=== PATIENT | male | born 2000 | race Caucasian/White ===

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

== ENCOUNTER 2024-08-11 21:08 | Emergency (ER) | payer OTHER, SELFPAY ==
[2024-08-11 21:09] VITALS: BP 150/92; PULSE 70; RESP 16; TEMP 36.2; O2SAT 100; BMI 28.6
[2024-08-11] MEDS: Amox/Clavulanate 875 MG Tablet PO (22:42)
[2024-08-11] MEDS: Diphth,Pertuss(Acell),Tet Vac 0.5 ML Vial IM (22:42)
--- NOTE | 2024-08-11 23:51 | EX.ED.DYSGE1 ---
HPI History of Present Illness Chief Complaint: Bite Informant: patient and spouse/S.O. Narrative Narrative: Patient is a 23-year-old male with no reported significant past medical history. He states roughly an hour before arrival his dogs tried to fight each other and as he was them he was bit in both the left and right hand. He is unsure of his tetanus status. He denies any numbness tingling or weakness. He denies any history of immunosuppression. He reports that he sustained a deep laceration to his right hand and has concern and may need sutures and therefore comes in for evaluation. [facility] Medical History (Updated 08/11/24 @ 23:[address] Polo Reyes, DO) Routine sports physical exam no medical history Home Medications ?Medication ?Instructions ?Recorded ?Last Taken ?Type amoxicillin 875 mg-potassium 1 tab PO BID 10 days #20 tabs 08/11/24 Unknown Rx clavulanate 125 mg tablet Allergy/AdvReac Type Severity Reaction Status Date / Time No Known Allergies Allergy Verified 08/11/24 21:09 Social History Smoking Status: Current every day smoker tobacco type: e-cigarettes ROS ROS ED Constitutional Constitutional ED: Denies chills or fever(s) ENT ENT ED: Denies sore throat Cardiovascular Cardiovascular: Denies chest pain Respiratory/Chest Respiratory/Chest: Denies cough or dyspnea Gastrointestinal Gastrointestinal: Denies abdominal pain, diarrhea, nausea or vomiting Genitourinary Genitourinary ED: Denies dysuria Musculoskeletal Musculoskeletal: Reports other Details: Positive bilateral hand pain Integumentary Reports other Details: Abrasions/lacerations to the bilateral hands consistent with dog bite Neurologic Neurologic: Denies headache(s), paresthesias or weakness Hematologic/Lymphatic Hematologic/Lymphatic: Denies easy bleeding or easy bruising EXAM Physical Exam Const Vital Signs: 08/11/24 21:09 Temperature 97.2 F L Temperature Source Temporal Pulse Rate 70 Respiratory Rate 16 Blood Pressure 150/92 H Blood Pressure Mean 111 Pulse Ox 100 Oxygen Delivery Method Room Air Positive well nourished and well developed General Appearance ED: well developed HEENT HEENT Narrative: Normocephalic atraumatic Eyes PERRL and EOMs intact bilaterally General Eye ED: Negative for scleral icterus Neck supple Resp normal respiratory effort and clear to auscultation bilaterally Cardio regular rate and regular rhythm Extremity Extremity Narrative: Bilateral upper extremities are neurovascularly intact; AIN/PIN are intact and normal The left hand has mild soft tissue swelling to the dorsal aspect of the left hand without bony deformity or joint effusion. No ligamentous or tendon laxity noted. Patient has 2 approximately 0.5 cm dermal layer deep lacerations to the dorsal aspect of the left hand. 1 is located near the base of of the 3rd-4th metacarpal and the second is located near the distal aspect of the second metacarpal. Each have minimal ooze of blood without foreign body The right hand also has mild soft tissue swelling along the hypothenar eminence. There is a 2 cm subcutaneous layer deep laceration with minimal ooze of blood and no foreign body consistent with dog bite. There is no obvious retained foreign body or ligamentous or tendon injury. No surrounding secondary soft tissue changes to suggest infection Both hands are soft and compressible going against compartment syndrome No signs of neurovascular compromise Neuro oriented x3, CN's II-XII intact bilaterally and no sensory deficits noted Sensorium / Orientation: alert Motor Exam: strength 5/5 throughout Psych mental status grossly normal Skin Skin Narrative: Dog bites/lacerations to the hands as documented above MDM MDM MDM Narrative Medical decision making narrative: Patient arrived to the ER hypertensive but otherwise with stable vitals. He had 2 bites of the dorsal aspect the left hand and one bite to the hypothenar eminence on the right. He had no signs of bony injury or ligamentous or tendon injury. We discussed potential x-rays to confirm/document no fracture or retained foreign body the patient has low concern for this and therefore does not on the x-rays obtained. As the dogs are his own and can be watched there is no need for treatment with rabies immunoglobulin or vaccination. However as he was unsure of his tetanus status was updated. In order to prevent secondary infection prophylactic Augmentin was started. The wounds to the dorsal aspect of the left hand are more superficial nature and do not need closure. The laceration to the right hand is gaping and jagged and will require loose closure in order to heal. Therefore the wound was sutured as documented below. Following this is patient does not have signs of systemic infection ligamentous or tendon injury there is no need for further workup and he is otherwise safe for discharge The right hand was cleaned with chlorhexidine. The area was anesthetized using 6 mL of 2% lidocaine with epinephrine in local fashion. The area was copiously irrigated with normal saline. Four 4-0 Ethilon sutures were then placed loosely in simple interrupted fashion which did help bring the wound edges closer together. Patient tolerated procedure well without complication History & Record Review Discussion w/independent historian: Patient and Significant other Discharge Plan Triage Chief Complaint: Bite ED Provider: Polo Reyes Dx/Rx/DC Orders Clinical Impression: Dog bite Instructions: ED Dog Bite, ED Laceration Extremity Prescriptions: New amoxicillin-pot clavulanate 875-125 mg tablet 1 tab PO BID 10 Days Qty: 20 0RF Primary Care Provider: Care Physician,No Primary Referrals: Sabino Chambers MD [Med Staff - Active Staff] - Care Physician,No Primary [Primary Care Provider] - Activity Restrictions/Additional Instructions: Please take your antibiotic as directed to prevent infection. Follow-up with your family doctor or return to the ER in 7 to 10 days for suture removal. If you feel you are developing secondary infection despite antibiotic use return for repeat evaluation Print Language: Bahamian Disposition Disposition: Home, Self Care Discharge Date/Time: 08/12/24 00:09
[2024-08-12] MEDS: Lidocaine 2% /Epi 1:100 (20ml) 20 ML VIAL INFILT (00:05)
== END 2024-08-12 00:09 | disposition home or self-care (01) ==
PROVIDERS: Emergency Provider Emergency Medicine; Visit Provider Emergency Medicine
DX: S61.452A Open bite of left hand, initial encounter (principal); S61.451A Open bite of right hand, initial encounter; F17.290 Nicotine dependence, other tobacco product, uncomplicated; W54.0XXA Bitten by dog, initial encounter; Z23 Encounter for immunization
CPT/HCPCS: 12001; 90471; 90715; 99283